=== PATIENT | female | born 1985 | race Caucasian/White ===

== ENCOUNTER 2024-03-25 02:02 | Emergency (ER) | payer BC ==
[~2024-03-25] VITALS: Ht 157.5 cm; Wt 111.0 kg
[2024-03-25 02:27] VITALS: BP 132/69; PULSE 90; RESP 20; TEMP 98.3; O2SAT 100
[2024-03-25 03:11] LABS: CLARITY URINE CLEAR (CLEAR); COLOR URINE YELLOW (YELLOW); GLUCOSE URINE NEGATIVE (NEGATIVE); KETONES URINE NEGATIVE (NEGATIVE); LEUKOCYTE ESTERASE URINE NEGATIVE (NEGATIVE); NITRITE URINE NEGATIVE (NEGATIVE); OCCULT BLOOD URINE TRACE (NEGATIVE); PH URINE 6.5 (4.5-8.0); PROTEIN URINE NEGATIVE (NEGATIVE); SPECIFIC GRAVITY URINE 1.014 (1.005-1.030); UROBILINOGEN URINE 0.2 E.U./dL (0.2-1.0)
[2024-03-25 03:14] LABS: BASOPHILS % 0.3 % (0.0-2.0); HEMATOCRIT. 41.7 % (36.0-48.0); HEMOGLOBIN. 14.5 g/dL (12.0-16.0); LYMPHOCYTES % 32.3 % (20.0-50.0); MEAN CORPUSCULAR HGB CONC 34.8 g/dL (31.0-37.0); MEAN PLATELET VOLUME 7.9 fl (7.4-10.4); MONOCYTES % 6.4 % (2.0-8.0); PLATELET 199 x1000/uL (130-400); RED BLOOD CELL COUNT 4.68 mill/uL (4.2-5.4); RED CELL DISTRIBUTION WIDTH 13.6 % (11.6-14.6); WHITE BLOOD COUNT 9.3 x1000/uL (4.5-11.0)
[2024-03-25 03:20] LABS: CHLORIDE 103 mEq/L (98-107); POTASSIUM 3.7 mEq/L (3.5-5.1); SODIUM 140 mEq/L (136-145)
[2024-03-25 03:21] LABS: CALCIUM 9.5 mg/dL (8.7-10.4); CARBON DIOXIDE 30 mEq/L (21-32)
[2024-03-25 03:26] LABS: GLUCOSE 91 mg/dL (70-105); UREA NITROGEN BLOOD 11 mg/dL (9-23)
[2024-03-25 03:28] LABS: ALANINE AMINOTRANSFERASE 25 IU/L (10-49); ALBUMIN 4.6 g/dL (3.2-4.8); ASPARTATE AMINOTRANSFERASE 24 IU/L (<34); BILIRUBIN TOTAL 0.6 mg/dL (0.1-1.0); PROTEIN TOTAL 7.5 g/dL (6.0-8.3)
[2024-03-25 04:11] LABS: WBC URINE 0-2 /hpf (0-2)
[2024-03-25 04:12] LABS: BACTERIA URINE TRACE; RBC URINE NONE SEEN /hpf (0-2); SQUAMOUS EPITHELIAL CELL URINE 1+ /lpf (RARE/1+)
[2024-03-25] MEDS ORDERED: PHEN1SUP42 RC (04:34)
== END 2024-03-25 05:10 | disposition home or self-care (01) ==
LOC: ER 02:02
DX: K64.8 Other hemorrhoids (principal); K62.5 Hemorrhage of anus and rectum; J45.909 Unspecified asthma, uncomplicated
CPT/HCPCS: 36415; 80053; 81003; 81025; 83880; 85025; 86850; 86900; 99283

== ENCOUNTER 2024-05-09 16:20 | Emergency (ER) | payer BC ==
[~2024-05-09] VITALS: Ht 170.2 cm; Wt 114.0 kg
[~2024-05-09 16:20] MED LIST: PHEN1SUP42 RC
[2024-05-09 16:28] VITALS: TEMP 97.8; O2SAT 96
[2024-05-09] MEDS: CYCLOBENZAPRINE 10MG TABLET PO ONE (18:53)
[2024-05-09] MEDS: KETOROLAC 15MG/ML VIAL IM ONE (18:53)
[2024-05-09] MEDS ORDERED: CYCL10TA21 MT (21:48)
[2024-05-09] MEDS ORDERED: NAPR-681 MT (21:48)
[2024-05-09 22:05] VITALS: BP 106/66; PULSE 64; RESP 14
== END 2024-05-09 22:08 | disposition home or self-care (01) ==
LOC: ER 16:20
DX: M25.551 Pain in right hip (principal); M79.10 Myalgia, unspecified site; J45.909 Unspecified asthma, uncomplicated; Z98.890 Other specified postprocedural states
CPT/HCPCS: 73502; 96372; 99283; J1885; Z7610